=== PATIENT | male | born 1965 | race Caucasian/White ===

== ENCOUNTER 2018-01-22 06:58 | Inpatient (IN) | payer OTHER ==
[~2018-01-22] VITALS: Ht 180.3 cm; Wt 122.5 kg
[2018-01-22 07:08] VITALS: Ht 180.3 cm; Wt 122.5 kg
[2018-01-22 07:36] LABS: BASOPHIL % 0.4 % (0-2); PLATELET COUNT 223 x10^3mcL (130-400); RED CELL DISTRIBUTION WIDTH 14.3 % (11.5-14.5)
[2018-01-22 07:45] LABS: CALCIUM 7.8 mg/dL (8.5-10.1); CARBON DIOXIDE 29.9 mmol/L (21-32); CHLORIDE SERUM 103 mmol/L (98-107); GFR1 > 60 mL/min; GLUCOSE SERUM 259 mg/dL (74-106); POTASSIUM SERUM 3.8 mmol/L (3.5-5.1); SODIUM SERUM 139 mmol/L (136-145)
[2018-01-22 07:50] LABS: ALBUMIN 3.4 g/dL (3.4-5.0); ALKALINE PHOSPHATASE 173 U/L (46-116); ALT/SGPT 58 U/L (16-63); AST/SGOT 37 U/L (15-37); BILIRUBIN TOTAL 1.7 mg/dL (0.20-1.00); TOTAL PROTEIN, SERUM 7.6 g/dL (6.4-8.2)
[2018-01-22] MEDS ORDERED: METFORMIN HYDR500 M1 PO (08:49)
[2018-01-22 11:41] VITALS: BP 163/102
[2018-01-22 12:21] VITALS: BP 134/96
[2018-01-22 17:15] VITALS: BP 144/95
[2018-01-22 17:21] VITALS: BP 142/102
[2018-01-22 20:18] VITALS: BP 140/85
[2018-01-22 21:45] LABS: microscopic required? NO
[2018-01-22 22:07] LABS: urine erythrocyte NEGATIVE (NEGATIVE)
[2018-01-22 22:28] LABS: AMPHETAMINE QUAL UR POSITIVE (NEG <=1000)
[2018-01-23] VITALS (8 sets, daily range): BP systolic 123–172; BP diastolic 86–111
[2018-01-23 05:46] LABS: BASOPHIL % 0.3 % (0-2); PLATELET COUNT 209 x10^3mcL (130-400); RED CELL DISTRIBUTION WIDTH 14.2 % (11.5-14.5)
[2018-01-23 06:03] LABS: CALCIUM 8.2 mg/dL (8.5-10.1); CARBON DIOXIDE 28.9 mmol/L (21-32); CHLORIDE SERUM 104 mmol/L (98-107); CREATININE SERUM 0.8 mg/dL (0.7-1.3); GFR1 > 60 mL/min; GLUCOSE SERUM 199 mg/dL (74-106); POTASSIUM SERUM 4.1 mmol/L (3.5-5.1); SODIUM SERUM 139 mmol/L (136-145)
[2018-01-24 04:57] VITALS: BP 133/84
[2018-01-24 06:22] LABS: BASOPHIL % 0.3 % (0-2); PLATELET COUNT 204 x10^3mcL (130-400); RED CELL DISTRIBUTION WIDTH 14.2 % (11.5-14.5)
[2018-01-24 06:34] LABS: CALCIUM 8.6 mg/dL (8.5-10.1); CARBON DIOXIDE 30.7 mmol/L (21-32); CHLORIDE SERUM 105 mmol/L (98-107); CREATININE SERUM 0.7 mg/dL (0.7-1.3); GFR1 > 60 mL/min; GLUCOSE SERUM 182 mg/dL (74-106); POTASSIUM SERUM 4.5 mmol/L (3.5-5.1); SODIUM SERUM 141 mmol/L (136-145)
[2018-01-24 09:30] VITALS: BP 144/90
[2018-01-24] MEDS ORDERED: GLUCOTROL5 MG PO (12:10)
[2018-01-24] MEDS ORDERED: LEVAQUIN750 MG PO (12:17)
[2018-01-24] MEDS ORDERED: ASPIR LOW81 MG PO (12:19)
[2018-01-24] MEDS ORDERED: METFORMIN HCL500 MG PO (12:24)
[2018-01-24 12:32] VITALS: BP 144/90
[2018-01-24] MEDS ORDERED: NOR10 PO (12:47)
[2018-01-24] MEDS ORDERED: ZES10 PO (12:48)
[2018-01-24] MEDS ORDERED: METOPROLOL TART25 M1 PO (12:48)
[2018-01-24 13:54] VITALS: BP 121/80
== END 2018-01-24 15:45 | disposition home or self-care (01) | DRG 139 ==
LOC: ED 06:58 → DU 08:55
PROVIDERS: Emergency Medicine; Internal Medicine Pulmonary Disease
DX: J18.9 Pneumonia, unspecified organism (principal); J81.1 Chronic pulmonary edema; I11.0 Hypertensive heart disease with heart failure; E11.65 Type 2 diabetes mellitus with hyperglycemia; I50.9 Heart failure, unspecified; E66.01 Morbid (severe) obesity due to excess calories; E11.9 Type 2 diabetes mellitus without complications; F17.210 Nicotine dependence, cigarettes, uncomplicated; F15.10 Other stimulant abuse, uncomplicated; Z79.899 Other long term (current) drug therapy; Z79.84 Long term (current) use of oral hypoglycemic drugs; Z91.14 Patient's other noncompliance with medication regimen
CPT/HCPCS: 82962; 83880; J0456; J0696; J1650; J1815; J1885; J1940; J2270; J3490; J7030; J7050; J7613; J7644; Q0092

== ENCOUNTER 2019-05-22 22:54 | Inpatient (IN) | payer OTHER ==
[~2019-05-22] VITALS: Ht 180.3 cm; Wt 125.6 kg
[~2019-05-22 22:54] MED LIST: ASPIR LOW81 MG PO; GLU500 PO; GLUCOTROL5 MG PO; LEVAQUIN750 MG PO; METFORMIN HYDR500 M1 PO; METOPROLOL TART25 M1 PO; NOR10 PO; ZES10 PO
[2019-05-22 23:00] VITALS: Ht 180.3 cm; Wt 125.6 kg
--- NOTE | 2019-05-22 23:06 | NUR ---
PT BIB [facility]. PT PICKED UP FROM HOME WITH C/O SOB. PER MEDCI PT WAS JUST RELEASED FROM [place] [facility] WHERE HE WAS HOSPITALIZED FOR 4 DAYS FOR SOB. PT STATED "I LAID DOWN AFTER I GOT HOME AND FELT LIKE I WAS DROWNING." PT BLOOD GLUCOSE [facility] PER MEDIC. PT C/O SOB, LEFT SIDED CHEST PAIN X4 DAYS S/P BEDING RELEASED X2HRS AGO AND RIGHT SIDED HEADACHE X2HRS S/P FROM HOSPITAL IN [facility]. PT HAS HISTROY OF STROKE, HTN, CHF, AND DM. PT IS AAOX4, SLURRED SPEECH BUT SPEAKING IN FULL SENTENCES, NO NEURO DEFICITS, NO DISTRESS NOTED, RESP SHALLOW AND EVEN, LUNG CONN ALL CLEAR TO AUSCULTATION, EDEMA NOTED TO BILATERAL LOWER EXTREMITIES AND HEALED SCAR NOTED TO LEFT ANKLE. PT GOWNED, PLACED ON FULL CM, SINUS TACHYCARDIA, MD AWARE, PT ORIENTED TO ROOM, BED IN LOWEST POSITION AND CALL KOHURY WITHIN REACH. DR PADILLA AT BEDSIDE FOR MSE. WILL CONT TO MONITOR.
[2019-05-22 23:36] LABS: BASOPHIL % 0.4 % (0-2); PLATELET COUNT 203 x10^3mcL (130-400)
[2019-05-22 23:42] LABS: CALCIUM 8.7 mg/dL (8.5-10.1); CARBON DIOXIDE 34.9 mmol/L (21-32); CHLORIDE SERUM 99 mmol/L (98-107); CREATININE SERUM 1.3 mg/dL (0.7-1.3); GFR1 > 60 mL/min; GLUCOSE SERUM 191 mg/dL (74-106); POTASSIUM SERUM 4.2 mmol/L (3.5-5.1); SODIUM SERUM 140 mmol/L (136-145)
[2019-05-22 23:45] LABS: RED CELL DISTRIBUTION WIDTH 15.4 % (11.5-14.5)
[2019-05-22 23:47] LABS: ALKALINE PHOSPHATASE 223 U/L (46-116); ALT/SGPT 108 U/L (16-63); AST/SGOT 57 U/L (15-37); BILIRUBIN TOTAL 1.3 mg/dL (0.20-1.00); TOTAL PROTEIN, SERUM 7.4 g/dL (6.4-8.2)
[2019-05-22 23:53] LABS: ALBUMIN 3.2 g/dL (3.4-5.0)
--- NOTE | 2019-05-23 00:56 | NUR ---
MEDICATED WITH LASIX IV PER MD ORDERS, SEE EMAR. PT VERBALIZED UNDERSTANDING OF MEDICATION TEACHING. WILL CONT TO MONITOR. PT IN NO DISTRESS, RESP EVEN AND UNLABORED AT THIS TIME.
[2019-05-23] MEDS ORDERED: METFORMIN500 M1 PO (01:04)
[2019-05-23] MEDS ORDERED: LISINOPRIL10 MG PO (01:04)
[2019-05-23] MEDS ORDERED: POTASSIUM CHLO10 ME5 PO (01:05)
[2019-05-23] MEDS ORDERED: TOP50 PO (01:05)
[2019-05-23] MEDS ORDERED: COLACE100 MG PO (01:06)
[2019-05-23] MEDS ORDERED: LIPI20 PO (01:06)
--- NOTE | 2019-05-23 01:50 | NUR ---
REPORT GIVEN TO MARLON BUCHANAN ON TELE UNIT, WHO WILL ASSUME FURTHER CARE OF THIS PATIENT.
[2019-05-23 02:29] VITALS: BP 113/89
--- NOTE | 2019-05-23 02:53 | NUR ---
ADMITTED A 54 YEARS OLD MALE BROUGHT BY ER NURSE VIA GURNEY C/O SOB AND CHESTPAIN. PER PATIENT HE WAS RECENTLY DISCHARGED FROM [facility] A FEW HOURS PRIOR TO ADMISSION. MEDICATED IN ER WITH LASIX 40MG IVP GIVEN. KEPT IN COMFORT,ORIENTED TO ROOM AND DEVICES. TELE# 23 [address] 100 0N MONITOR, DENIES CHEST PAIN AT THIS TIME. EDEMA 2+ NOTED TO BLE. IV TO RH INTACT ON HEPLOCKED. WITH ADMISSION ORDERS FROM DR CARR AND TO CARRY OUT. WILL CONTINUE TO MONITOR. CALL LIGHT WITHIN REACH.
--- NOTE | 2019-05-23 05:28 | NUR ---
SLEPT FAIRLY, DENIES PAIN AND DISCOMFORT THE ENTIRE SHIFT. ALL NEEDS ATTENDED.
--- NOTE | 2019-05-23 05:48 | NUR ---
AWAKE C/O BILATERAL LEG PAIN, NORCO 1 TAB PO GIVEN PRESCRIBED. WILL ENDORSE CONTINOUS CARE TO AM SHIFT.
[2019-05-23 05:56] VITALS: BP 116/89
[2019-05-23 06:20] LABS: BASOPHIL % 0.4 % (0-2); PLATELET COUNT 189 x10^3mcL (130-400)
[2019-05-23 06:24] LABS: CALCIUM 8.6 mg/dL (8.5-10.1); CARBON DIOXIDE 36.8 mmol/L (21-32); CHLORIDE SERUM 102 mmol/L (98-107); CREATININE SERUM 1.2 mg/dL (0.7-1.3); GFR1 > 60 mL/min; GLUCOSE SERUM 178 mg/dL (74-106); MAGNESIUM 1.6 mg/dL (1.8-2.4); POTASSIUM SERUM 4.7 mmol/L (3.5-5.1); SODIUM SERUM 141 mmol/L (136-145)
[2019-05-23 06:47] LABS: RED CELL DISTRIBUTION WIDTH 15.5 % (11.5-14.5)
--- NOTE | 2019-05-23 07:44 | NUR ---
A+OX4, NO RESPIRATORY DISTRESS NOTED, PARTIALLY BLIND IN BOTH EYES, TELE 23, PULSES MODERATE AND EQUAL CHIARA, EDEMA +2 BLE, HEAPRIN SQ, LUNG SOUNDS CTA, 2L NC, BOWEL SOUNDS ACTIVE, VOIDING FREELY, GENERALIZED WEAKNESS, AMBUALTORY, SKIN INTACT, IV IN R HAND SALINE LOCKED, SITE WNL.
[2019-05-23 08:12] VITALS: BP 119/93
[2019-05-23 08:14] LABS: microscopic required? YES; urine erythrocyte TRACE (NEGATIVE)
[2019-05-23 08:24] LABS: AMPHETAMINE QUAL UR NONE DETECTED (See below)
--- NOTE | 2019-05-23 08:45 | NUR ---
ECHOCARDIOGRAM PENDING-STATES HAD ECHOCARDIOGRAM YESTERDAY AT [facility]
--- NOTE | 2019-05-23 09:56 | NUR ---
PT STATES HE WAS TOLD BY [facility] THAT HE HAD A STROKE AND WAS INSTRUCTED NOT TO TAKE BLOOD THINNERS FOR [address] CARR DURING ROUNDS. PT RESTING IN BED, NO RESPIRATORY DISTRESS NOTED, CALL LIGHT WITHIN REACH.
[2019-05-23 12:01] VITALS: BP 122/94
--- NOTE | 2019-05-23 12:20 | NUR ---
PT RESTING IN BED, COMPLAINING OF 7/10 BLE PAIN, REQUESTING NORCO PO, NORCO PO GIVEN, CALL LIGHT WITHIN REACH.
--- NOTE | 2019-05-23 14:26 | NUR ---
DR CARR AT BEDSIDE TO ASSESS PT AND UPDATE HIM ON PLAN OF CARE, ALL QUESTIONS AND CONCERNS ADDRESSED. DR CARR NOTIFIED THAT PT WAS TOLD BY [facility] TO NOT TAKE BLOOD THINNERS FOR 2 WEEKS. PT RESTING IN BED, NO RESPIRATORY DISTRESS NOTED, CALL LIGHT WITHIN REACH.
--- NOTE | 2019-05-23 17:18 | NUR ---
WITNESSED PT SIGN MEDICAL RELEASE FORM TO OBTAIN MEDICAL RECORDS FROM [facility].
[2019-05-23 17:21] VITALS: BP 129/80
--- NOTE | 2019-05-23 17:52 | NUR ---
PT RESTING IN BED, NO RESPIRATORY DISTRESS NOTED, COMPLAINING OF 7/10 BLE PAIN, NORCO PO GIVEN, CALL LIGHT WITHIN REACH.
--- NOTE | 2019-05-23 19:13 | NUR ---
ENDORSED CARE TO ADDISON BUCHANAN.
--- NOTE | 2019-05-23 19:30 | NUR ---
RECEIVED PT ASLEEP BUT EASILY AROUSABLE.BREATHING EASY AND NON-LABORED.DIMINISHED BREATHSOUNDS.O2 @ 2L/MIN VIA N/C.O2 SAT @ 100%.REPORTS OF OCCASSIONAL COUGHING/NO CONGESTION NOTED.BM TO YELLOW SOFT STOOL.EDEMA TO BLE.HEALTH TEACHINGS PROVIDED TO PT RE:CHF.WILL CONTINUE TO MONITOR.
[2019-05-23 19:35] VITALS: BP 111/83
--- NOTE | 2019-05-24 05:00 | NUR ---
PT SLEPT WELL.BREATHING EASY AND NON-LABORED.BLE SWELLING SUBSIDING WELL.ALL NEEDS MET.WILL CONTINUE TO MONITOR.
[2019-05-24 05:37] VITALS: BP 102/72
--- NOTE | 2019-05-24 07:02 | NUR ---
EKG DONE THIS AM AND NOTED ATRIAL FLUTTER WITH PREDOMINANT 3:1 AV BLOCK.FIRST EKG ON ADMISSION WAS SINUS RYTHMM.PAGED DR. LIU.AWAITING FOR CALL BACK.WILL ENDORSE TO AM NURSE.
--- NOTE | 2019-05-24 07:18 | NUR ---
DR. LIU CALLED BACK AND MADE AWARE.NO NEW ORDER AT THIS TIME AND JUST MONITOR.ENDORSED TO AM NURSE.
--- NOTE | 2019-05-24 07:20 | NUR ---
RECEIVED PT FROM BRIDGE GANG WORKER RN. Aydee/RADHA. TELE#23. DENIES ANY CHEST PAIN/PRESSURE. RESPIRATIONS EQUAL AND UNLABORED ON 2L NC. PT STATES "MY BREATHING HAS IMPROVED SINCE I HAVE BEEN GETTING THE LASIX" PT C/O PAIN 01/05 TO BLE. PT STATES PAIN FEELS LIKE PRESSURE TO HIS ANKLES. IV TO RFA SALINE LOCKED. NO REDNESS OR SWELLING NOTED. WILL CONTINUE TO MONITOR. CALL LIGHT IN REACH. BED IN LOWEST POSITION.
[2019-05-24 07:31] LABS: CALCIUM 8.8 mg/dL (8.5-10.1); CHLORIDE SERUM 100 mmol/L (98-107); CREATININE SERUM 0.9 mg/dL (0.7-1.3); GFR1 > 60 mL/min; GLUCOSE SERUM 165 mg/dL (74-106); POTASSIUM SERUM 3.7 mmol/L (3.5-5.1); SODIUM SERUM 141 mmol/L (136-145)
[2019-05-24 07:39] LABS: BASOPHIL % 0.3 % (0-2); PLATELET COUNT 190 x10^3mcL (130-400)
[2019-05-24 07:52] VITALS: BP 111/79
[2019-05-24 08:07] LABS: CHOLESTEROL/HDL RATIO 3.3
[2019-05-24 08:13] LABS: RED CELL DISTRIBUTION WIDTH 15.4 % (11.5-14.5)
--- NOTE | 2019-05-24 08:22 | NUR ---
PT SITTING UP IN BED. NO ACUTE RESP DISTRESS NOTED ON 2L NC. PT DENIES ANY SOB AT THIS TIME. PT C/O PAIN 02/05 TO BLE SHARP. MEDICATED PER EMAR. GIVEN PO MEDS. TOLERATED WELL. IV TO RW FLUSHED WELL. SALINE LOCKED. NO REDNESS OR SWELLING NOTED. WILL CONTINUE TO MONITOR. CALL LIGHT IN REACH. BED IN LOWEST POSITION.
--- NOTE | 2019-05-24 10:12 | NUR ---
PT SITTING UP IN BED. NO ACUTE RESP DISTRESS NOTED ON 2L NC. O2 SAT WAS CHECKED WAS 99% ON 2L. NC REMOVED WILL REASSESS O2 SAT WITHIN 15 MINUTES. PT STATES PAIN TO BLE HAS IMPROVED. PT ASKING TO REST. ELEVATED HEELS ON PILLOW. GIVEN PO MEDS. TOLERATED WELL. WILL CONTINUE TO MONITOR. CALL LIGHT IN REACH. BED IN LOWEST POSITION.
--- NOTE | 2019-05-24 10:39 | NUR ---
PT SITTING UP IN BED. NO ACUTE RESP DISTRESS NOTED ON RA. PT STATES "AFTER REMOVING THE OXYGEN I FEEL LIKE ITS HARD TO BREATH, I FEEL MORE COMFORTABLE WITH OXYGEN." PT C/O FEELING CHEST PALPITATIONS. CALLED VENDOR MANAGEMENT CONSULTANT DIANE PT IS NSR WITH [facility]. PLACED PT BACK ON NC 2L. SPOKE WITH PHYSICAL THERAPIST GIANNI WILL WORK WITH PT TO SEE HOW PT DOES. WILL CONTINUE TO MONITOR. CALL LIGHT IN REACH. BED IN LOWEST POSITION.
--- NOTE | 2019-05-24 11:01 | NUR ---
DR. LIU AT BEDSIDE. DR. LIU INFORMING PT WILL INCREASE PT AMNIODARONE TO TID, PER DR. LIU DEPENDING ON HOW PT RESPONDS WILL PLAN FOR DISCHARGE TOMORROW. PER DR. LIU OKAY TO CHANGE LASIX FROM IV TO PO. WILL UPDATE DR. CARR.
--- NOTE | 2019-05-24 11:52 | NUR ---
PT SITTING UP IN BED. NO ACUTE RESP DISTRESS NOTED ON 2L NC. LISTENED TO PT APICAL HEART RATE NOTED RATE 102. WANIGAN CLERK DIANE NOTIFIED. PT GIVEN DIGOXIN IVP. TOLERATED WELL. PT C/O A MILD SALDANA. PT STATES "I DID NOT EAT MUCH THIS MORNING." BLOOD SUGAR WAS CHECKED WAS 81. NO COVERAGED NEEDED. PHYSICAL THERAPIST GIANNI AT BEDSIDE, PER GIANNI WILL COME BACK IN 15 MINUTES TO WORK WITH PT. WILL CONTINUE TO MONITOR. CALL LIGHT IN REACH. BED IN LOWEST POSITION.
[2019-05-24 12:11] VITALS: BP 110/82
--- NOTE | 2019-05-24 14:46 | NUR ---
DR. CARR AT BEDSIDE. DR. CARR EXPLAINED TO PT WILL KEEP PT UNTIL TOMORROW. DR. CARR MADE AWARE OF DR. LIU RECOMMENDATIONS TO CHANGE LASIX IV TO LASIX PO. PER DR. CARR WILL CHANGE ORDER.
--- NOTE | 2019-05-24 15:09 | NUR ---
PT AMBULATED IN HALLWAY. O2 SAT WAS CHECKED WAS 85% ON RA AFTER WALKING. PT PLACED BACK ON O2. SPOKE WITH DR. LIU INFORMED DR. LIU PT HR IS STILL [address] LIU IF HR IS ABOVE 100 AT 1800 GIVEN DIGOXIN IVP ONE MORE TIME.
[2019-05-24 17:05] VITALS: BP 121/79
--- NOTE | 2019-05-24 18:18 | NUR ---
PT SITTING UP IN BED. NO ACUTE RESP DISTRESS NOTED ON RA. NEW LEADS REPLACED TO ALL 5 LEADS. PT APICAL HEART RATE 101. PT GIVEN DIGOXIN IV. DEALER ACCOUNT MANAGER NOTIFIED FOR BEFORE AND AFTER STRIP. PT DENIES ANY PAIN AT THIS TIME. WILL ENDORSE TO GRAPHIC DESIGN PROFESSOR RN. CALL LIGHT IN REACH. BED IN LOWEST POSITION.
[2019-05-24 19:25] VITALS: BP 118/73
--- NOTE | 2019-05-24 19:25 | NUR ---
RECEIVED PT AWAKE ALERT AND VERBALLY RESPONSIVE C/O OF CHEST DISCOMFORT MORE ON EPIGASTRIC AREA 5/10 TO ACHING PAIN.BP 118/73 MMHG,HR 95.NORCO 5/325 MG PO ADMINISTERED.COMFORT MEASURES RENDERED.BREATHING EASY AND NON-LABORED.DIMINISHED BREATHSOUNDS.O2 @ 3L/MIN O2 SAT @ 100%.EDEMA TO BLE NOTED.ENCOURAGED TO ELEVATE AT THIS TIME.WILL CONTINUE TO MONITOR.
--- NOTE | 2019-05-25 05:05 | NUR ---
PT SLEPT WELL.BREATHING EASY AND NON-LABORED.O2 @ 3L/MIN VIA N/C.MEDICATED WITH NORCO 5/325 MG PO X1 FOR CHEST DISCOMFORT WITH GOOD RELIEF.ALL NEEDS MET.WILL CONTINUE TO MONITOR.
[2019-05-25 05:33] VITALS: BP 111/79; BP 151/70
[2019-05-25 07:00] LABS: BASOPHIL % 0.1 % (0-2); PLATELET COUNT 211 x10^3mcL (130-400)
[2019-05-25 07:07] LABS: CALCIUM 9.1 mg/dL (8.5-10.1); CARBON DIOXIDE 33.8 mmol/L (21-32); CHLORIDE SERUM 100 mmol/L (98-107); GFR1 > 60 mL/min; GLUCOSE SERUM 142 mg/dL (74-106); POTASSIUM SERUM 4.8 mmol/L (3.5-5.1); SODIUM SERUM 140 mmol/L (136-145)
--- NOTE | 2019-05-25 08:00 | NUR ---
SHIFT ASSESSMENT DOEN. PATIENT A/A/OX3; TELE#23; SR OR AF, ALTERNATED. HR = 88-107/MIN. DENIED CHEST PAIN NOW. BREATHING SOUND DIMINISHED CHIARA BASES; O2 AST 99% ON 3L VIA N/C. EDEMA 2+ TO BLE. IVHL'D TO RFA. GENERAL WEAKNESS, BUT AMBULATORY. TOLERATED DIET. CALL LIGHT IN REACH.
[2019-05-25 09:48] VITALS: BP 113/78
--- NOTE | 2019-05-25 10:34 | NUR ---
DR. LIU CAME TO SEE PATIENT. PATIENT'S B/P = 113/78; HR = 86; LASIX 40MG IVP, NORVASC AND AMIODIRONE GIVEN. LISINOPRIL AND METOPROLOL HOLD. DR. LIU NOTIFIED AND AGREED WITH.
[2019-05-25] MEDS ORDERED: COR200 PO (12:27)
[2019-05-25] MEDS ORDERED: DIG125 PO (12:28)
[2019-05-25 13:16] VITALS: BP 135/90
[2019-05-25 17:09] VITALS: BP 127/71
[2019-05-25 18:36] VITALS: BP 127/71
--- NOTE | 2019-05-25 18:45 | NUR ---
PATIENT HAD VOID X9 AFTER LASIX 40MG IVP GIVEN. NO SOB THIS TIME. O2 SAT 96% ON RA. PATIENT WOULD BE D/C TO HOME WITH OXYGEN PER ORDER. ENDOSED CARE TO [facility] NURSE.
--- NOTE | 2019-05-25 19:41 | NUR ---
PER PT, HOME OXYGEN EQUIPMENT DELIVERED AT HOME AT THIS TIME. IV TO RFA REMOVED WITH CATH INTACT. TELE REMOVED AND RETURNED TO MONITOR STATION. D/C VIA WHEELCHAIR ACCOMPANIED BY DB ARITA, BREATHING ON RA, EVEN AND UNLABORED, NO ACUTE DISTRESS OBSERVED. PT'S O2 TANK WITH PT. ALL BELONGINGS WITH PT, D/C PAPERS SIGNED.
== END 2019-05-25 19:42 | disposition home or self-care (01) | DRG 133 ==
LOC: ED 22:54 → DU 05-23 00:58
PROVIDERS: Emergency Medicine; Internal Medicine Cardiovascular Disease; ADMIT Internal Medicine Pulmonary Disease
DX: J96.01 Acute respiratory failure with hypoxia (principal); I50.23 Acute on chronic systolic (congestive) heart failure; I48.0 Paroxysmal atrial fibrillation; E11.65 Type 2 diabetes mellitus with hyperglycemia; I48.92 Unspecified atrial flutter; I11.0 Hypertensive heart disease with heart failure; F15.10 Other stimulant abuse, uncomplicated; Z79.84 Long term (current) use of oral hypoglycemic drugs; Z86.73 Personal history of transient ischemic attack (TIA), and cerebral infarction without residual deficits; Z87.891 Personal history of nicotine dependence; E78.5 Hyperlipidemia, unspecified
CPT/HCPCS: 82962; 83880; 97116-GP; G0378; J1160; J1644; J1940; Q0092

== ENCOUNTER 2019-05-30 09:07 | Emergency (ER) | payer OTHER ==
[~2019-05-30] VITALS: Ht 182.9 cm; Wt 118.8 kg
[~2019-05-30 09:07] MED LIST changes: +COLACE100 MG PO; +COR200 PO; +DIG125 PO; +LIPI20 PO; +LISINOPRIL10 MG PO; +METFORMIN500 M1 PO; +POTASSIUM CHLO10 ME5 PO; +TOP50 PO
[2019-05-30 09:11] VITALS: Ht 182.9 cm; Wt 118.8 kg
[2019-05-30 09:54] LABS: BASOPHIL % 0.4 % (0-2); PLATELET COUNT 221 x10^3mcL (130-400)
[2019-05-30 09:56] LABS: RED CELL DISTRIBUTION WIDTH 15.3 % (11.5-14.5)
[2019-05-30 10:11] LABS: CALCIUM 7.8 mg/dL (8.5-10.1); CARBON DIOXIDE 26.6 mmol/L (21-32); CHLORIDE SERUM 106 mmol/L (98-107); GFR1 > 60 mL/min; GLUCOSE SERUM 288 mg/dL (74-106); POTASSIUM SERUM 4.7 mmol/L (3.5-5.1); SODIUM SERUM 139 mmol/L (136-145)
[2019-05-30 10:17] LABS: ALKALINE PHOSPHATASE 119 U/L (46-116); ALT/SGPT 53 U/L (16-63); AST/SGOT 44 U/L (15-37); BILIRUBIN TOTAL 0.8 mg/dL (0.20-1.00); TOTAL PROTEIN, SERUM 7.4 g/dL (6.4-8.2)
[2019-05-30 10:25] LABS: ALBUMIN 3.2 g/dL (3.4-5.0)
[2019-05-30 11:55] VITALS: BP 114/86
== END 2019-05-30 13:39 | disposition home or self-care (01) ==
LOC: ED 09:07
DX: I11.0 Hypertensive heart disease with heart failure (principal); I50.9 Heart failure, unspecified; E11.9 Type 2 diabetes mellitus without complications
CPT/HCPCS: 36415

== ENCOUNTER 2019-07-06 12:00 | Emergency (ER) | payer OTHER ==
[~2019-07-06] VITALS: Ht 180.3 cm; Wt 117.9 kg
[2019-07-06 12:05] VITALS: Ht 180.3 cm; Wt 117.9 kg
[2019-07-06 12:36] LABS: BASOPHIL % 0.2 % (0-2); PLATELET COUNT 165 x10^3mcL (130-400); RED CELL DISTRIBUTION WIDTH 15.1 % (11.5-14.5)
[2019-07-06 12:41] LABS: CALCIUM 8.4 mg/dL (8.5-10.1); CARBON DIOXIDE 30.3 mmol/L (21-32); CREATININE SERUM 1.4 mg/dL (0.7-1.3); POTASSIUM SERUM 3.7 mmol/L (3.5-5.1)
[2019-07-06 12:45] LABS: ALBUMIN 3.6 g/dL (3.4-5.0); BILIRUBIN TOTAL 1.8 mg/dL (0.20-1.00)
[2019-07-06 12:49] LABS: TOTAL PROTEIN, SERUM 8.3 g/dL (6.4-8.2)
[2019-07-06 15:46] VITALS: BP 122/71
== END 2019-07-06 16:07 | disposition home or self-care (01) ==
LOC: ED 12:00
DX: K42.9 Umbilical hernia without obstruction or gangrene (principal); I42.9 Cardiomyopathy, unspecified; I11.0 Hypertensive heart disease with heart failure; I50.9 Heart failure, unspecified; E11.9 Type 2 diabetes mellitus without complications
CPT/HCPCS: 36415

== ENCOUNTER 2020-11-10 13:28 | Emergency (ER) | payer OTHER ==
[~2020-11-10] VITALS: Ht 180.3 cm; Wt 1281.4 kg
[2020-11-10 14:04] VITALS: Ht 180.3 cm; Wt 1281.4 kg
[2020-11-10 14:58] LABS: BASOPHIL % 0.6 % (0.2-1.5); PLATELET COUNT 237 x10^3mcL (152-348); RED CELL DISTRIBUTION WIDTH 14.1 % (12.1-16.2)
[2020-11-10 15:19] LABS: CALCIUM 9.2 mg/dL (8.5-10.1); CARBON DIOXIDE 27.6 mmol/L (21-32); CREATININE SERUM 1.7 mg/dL (0.7-1.3); POTASSIUM SERUM 4.1 mmol/L (3.5-5.1)
[2020-11-10 15:24] LABS: ALBUMIN 3.6 g/dL (3.4-5.0); BILIRUBIN TOTAL 0.9 mg/dL (0.20-1.00); TOTAL PROTEIN, SERUM 7.9 g/dL (6.4-8.2)
[2020-11-10 16:51] VITALS: BP 133/67
== END 2020-11-10 16:42 | disposition home or self-care (01) ==
LOC: ED 13:28
PROVIDERS: Student in an Organized Health Care Education/Training Program
DX: E11.65 Type 2 diabetes mellitus with hyperglycemia (principal); I11.0 Hypertensive heart disease with heart failure; I50.9 Heart failure, unspecified
CPT/HCPCS: 82962; J1815; J7030